=== PATIENT | male | born 1965 | race Asian ===

== ENCOUNTER 2024-10-07 10:02 | Emergency (ER) | payer OTHER ==
[~2024-10-07] VITALS: Ht 182.9 cm; Wt 154.6 kg
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
[2024-10-07 13:20] VITALS: BP 143/89
[2024-10-07 15:13] VITALS: PULSE 67; RESP 16; TEMP 98.4; O2SAT 99
[2024-10-07] MEDS: albuterol 60 PUFF/8GM Inhaler (90mcg/1 puff) IH PRN (15:13)
== END 2024-10-07 15:16 | disposition home or self-care (01) ==
LOC: ER 10:03
DX: J45.909 Unspecified asthma, uncomplicated (principal); Z76.0 Encounter for issue of repeat prescription
CPT/HCPCS: 99284

== ENCOUNTER 2024-10-14 17:48 | Emergency (ER) | payer SELFPAY ==
[~2024-10-14] VITALS: Ht 180.3 cm; Wt 144.0 kg
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
[2024-10-14 19:43] VITALS: BP 111/74; PULSE 80; RESP 18; TEMP 98.9; O2SAT 99
== END 2024-10-14 19:44 | disposition home or self-care (01) ==
LOC: ER 17:49
DX: R26.89 Other abnormalities of gait and mobility (principal)
CPT/HCPCS: 99283

== ENCOUNTER 2024-10-26 22:58 | Emergency (ER) | payer SELFPAY ==
[~2024-10-26] VITALS: Ht 195.6 cm; Wt 122.5 kg
[2024-10-26 23:00] VITALS: TEMP 98
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
[2024-10-27] MEDS ORDERED: PRED20TA PO (03:13)
[2024-10-27] MEDS ORDERED: ALBU18HF2 IH (03:13)
[2024-10-27] MEDS: ipratropium/albuterol 3ml nebule NEB ONE (03:20)
[2024-10-27 03:24] VITALS: PULSE 93; RESP 18; O2SAT 90
[2024-10-27 03:29] VITALS: PULSE 99; RESP 18; O2SAT 94
[2024-10-27 03:57] VITALS: BP 140/98; PULSE 95; RESP 16; O2SAT 93
--- NOTE | 2024-10-27 05:24 | ELECTROCARDIOGRAPH REPORT ---
[facility] Test Date: 2024-10-26 Test Time: 23:00:18 Pat Name: TERRY BLUM Department: EMERGENCY ROOM Room: Gender: M Molder Operator: NEFTALY : 1965 Requested By: DEPARTMENT EMERGENCY Order Number: [id number] Reading MD: Measurements Intervals [place] Rate: 104 P: 76 [place]: 155 QRS: 152 QRSD: 153 T: 60 QT: 365 QTc: 481 Interpretive Statements Sinus tachycardia RBBB and LPFB Baseline wander in lead(s) V2 Please click the below link to view image of tracing.
== END 2024-10-27 03:58 | disposition home or self-care (01) ==
LOC: ER 22:58
DX: J44.1 Chronic obstructive pulmonary disease with (acute) exacerbation (principal)
CPT/HCPCS: 93005; 94640; 94760; 99285

== ENCOUNTER 2024-10-27 14:37 | Emergency (ER) | payer SELFPAY ==
[~2024-10-27] VITALS: Ht 182.9 cm; Wt 154.6 kg
[~2024-10-27 14:37] MED LIST: ALBU18HF2 IH; PRED20TA PO
[2024-10-27 14:44] VITALS: BP 138/98; PULSE 100; RESP 21; TEMP 97.7; O2SAT 95
[2024-10-27] MEDS ORDERED: ipratropium/albuterol 3ml nebule NEB ONE (14:50)
--- NOTE | 2024-10-27 14:50 | Physician Documentation ---
History of Present Illness ~ Chief Complaint: Asthma Stated Complaint: SOB HPI This is a 59-year-old male who was recently discharged from the hospital, patient reports that he is having an asthma attack, patient reports he was unable to brain picker his prescribed albuterol inhaler and prednisone today. Medication Reconciliation Allergies: Uncoded Allergies: PCN (Allergy, Unknown, 10/07/24) Scheduled Albuterol Sulfate (Ventolin Hfa), 2 PUFFS IH 5XD Prednisone* (Prednisone*), 1 TAB PO DAILY Review of Systems ROS As stated above in the HPI, otherwise all systems are reviewed and negative. Physical Exam Vital Signs: Temperature: 97.7, Source: Temporal, Heart Rate: 100, Respiratory Rate: 21, BP: 138/98, Pulse Oximetry: 95, Weight: 154.550 Oxygen Flow Rate: 0 Physical Exam VITALS: Reviewed and as above. GENERAL: Alert, nontoxic appearing, no apparent distress. RESPIRATORY: Mildly increased work of breathing, no respiratory distress, speaking in short sentences, expiratory wheezes in all lung burgos Progress Results/Orders Results/Orders Orders - ARMANDO MCMULLEN Svn Treatment (10/27/24 14:46) Completed Orders - ARMANDO MCMULLEN Ipratropium/Albuterol Nebule (Ipratrop/A (10/27/24 14:50) Vital Signs 10/27/24 14:44 Temp 97.7 Pulse 100 Resp 21 B/P (MAP) 138/98 Pulse Ox 95 O2 Flow Rate 0 Medical Decision Making Findings MSE performed in triage and patient returned to ED lobby by nursing staff to await available ED room for breathing treatment by RT, patient is currently not hypoxic and is otherwise hemodynamically stable. Patient appears to have eloped from ED lobby. Differential Dx:Considerations: Include: anxiety, asthma, bronchitis, CHF, COPD, panic attack, pneumonia Departure Disposition: LEFT AWOL/ELOPED Impression: Primary Impression: Shortness of breath Referrals: NO PRIMARY CARE PROVIDER (PCP) Signature Scribe Signature: No scribe Attestation: The note accurately reflects work and decisions made by me.MAGDALENO Dee 10/30/24 22:14 ARMANDO MCMULLEN Oct 27, 2024 14:50
== END 2024-10-27 17:36 | disposition left against medical advice (07) ==
LOC: ER 14:38
DX: J45.909 Unspecified asthma, uncomplicated (principal); R06.02 Shortness of breath
CPT/HCPCS: 99281